=== PATIENT | female | born 1980 | race Caucasian/White ===

== ENCOUNTER 2024-07-18 08:41 | Emergency (ER) | payer MEDICARE, SELFPAY ==
[2024-07-18 09:00] VITALS: BP 143/94
--- NOTE | 2024-07-18 09:13 | ED.GENMED ---
History of Present Illness
<Jessica Cody APPLICATIONS SYSTEMS ENGINEER - Last Filed: 07/18/24 18:10>
General
Chief Complaint: Back Pain
Source: patient
Exam Limitations: none
Time Seen by Provider: 07/18/24 09:11
Nursing documentation reviewed up to this point in time: agreed with
History of Present Illness
History of Present Illness:
43 yo female w h/o Neuropathy, HTN, anemia presents for L lower back pain w radiation down L leg. Developed sudden pain in R lower back 2 days ago while taking lights off [employer]. Pain in the area has gradually worsened. She felt a 'knowt' in
the area. Has been massaging the area. States pain radiates down buttock to outer thigh, down back of calf to foot. Burning, tingling pain.
Took Naproxen 6 a.m. with no relief. Had left over Tramadol which she took with no relief.
States about a year ago she was prescribed Methylprednisolone pack and after one pill developed high blood pressure, palpitations and felt 'awful.' So hasn't taken any steroids since.
Denies saddle anesthesia, denies weakness in legs, has been ambulating well, denies loss of bowel or bladder control
Past History
<Jessica Cody, APPLICATIONS SYSTEMS ENGINEER - Last Filed: 07/18/24 18:10>
Past History
ED Past Medical History: HTN and Other (Neuropathy both lower extremities)
ED Past Surgical History: Gynecological and Other (Skin lesion excision, D&C,)
Social History
Tobacco: Smoker
Alcohol: Daily
Drug: None
Personal: Single
Living: with family
Employment: Not employed
Review of Systems
<Jessica Cody, APPLICATIONS SYSTEMS ENGINEER - Last Filed: 07/18/24 18:10>
Review of Systems
Allergies reviewed?: Yes
All Other Systems: ROS reviewed and negative except as documented in HPI and ROS
Constitutional: Denies fever or fatigue
Respiratory: Denies trouble breathing
Cardiac: Denies chest pain
ABD/GI: Denies abdominal pain
: Denies dysuria, incontinence or difficulty voiding
Musculoskeletal: Reports back pain (L lower back pain)
Neurological: Reports other (pain radiates down buttock, outer thigh, calf to foot. ); Denies weakness or numbness
Phy Exam
<Jessica Cody, APPLICATIONS SYSTEMS ENGINEER - Last Filed: 07/18/24 18:10>
Physical Exam
Physical Exam:
GENERAL: No acute distress. A&Ox3.
CONSTITUTIONAL: Afebrile.
EYES: clear, conjunctivae normal
ENMT: moist mucus membranes
RESPIRATORY: Regular respirations, nonlabored, lungs clear.
CARDIOVASCULAR: Regular rate and rhythm, no murmurs, no rubs.
GI: Soft, nontender, normal BS
MUSCULOSKELETAL: Cannot reproduce pain with deep palpation of lower back/buttock. Full Rom of spine, neg bilateral SLR. Moves with ease. Sitting, standing from stretcher with ease. Well perfused.
SKIN: Warm, dry, pink
PSYCH: Normal mood and affect. Well kept, interactive and appropriate
NEUROLOGIC: Awake, alert and oriented. No focal neurological deficits. Strength 5/5 bilateral LEs. Ambulates well with normal gait.
Course
<Jessica Cody, APPLICATIONS SYSTEMS ENGINEER - Last Filed: 07/18/24 18:10>
Orders/Labs/Results
Orders:
Orders
07/18/24 09:32
Cyclobenzaprine HCl [Flexeril] 10 mg PO NOW STA
Ketorolac [Toradol] 30 mg IM NOW STA
07/18/24 10:08
Prednisone [Deltasone] 50 mg PO NOW STA
07/18/24 10:13
Dexamethasone [Decadron] 10 mg PO NOW STA
Vital Signs
Initial and Last Documented VS:
Initial Vital Signs
Temp Pulse Resp BP Pulse Ox
98.1 F 79 20 143/94 100
07/18/24 09:00 07/18/24 09:00 07/18/24 09:00 07/18/24 09:00 07/18/24 09:00
Last Documented Vital Signs
Temp Pulse Resp BP Pulse Ox
98.3 F 72 18 153/105 98
07/18/24 10:35 07/18/24 10:35 07/18/24 10:35 07/18/24 10:35 07/18/24 10:35
<Juan Francisco Muñoz MD - Last Filed: 07/18/24 10:09>
Orders/Labs/Results
Orders:
Orders
07/18/24 09:32
Cyclobenzaprine HCl [Flexeril] 10 mg PO NOW STA
Ketorolac [Toradol] 30 mg IM NOW STA
07/18/24 10:08
Prednisone [Deltasone] 50 mg PO NOW STA
07/18/24 10:13
Dexamethasone [Decadron] 10 mg PO NOW STA
Vital Signs
Initial and Last Documented VS:
Initial Vital Signs
Temp Pulse Resp BP Pulse Ox
98.1 F 79 20 143/94 100
07/18/24 09:00 07/18/24 09:00 07/18/24 09:00 07/18/24 09:00 07/18/24 09:00
Last Documented Vital Signs
Temp Pulse Resp BP Pulse Ox
98.3 F 72 18 153/105 98
07/18/24 10:35 07/18/24 10:35 07/18/24 10:35 07/18/24 10:35 07/18/24 10:35
<Jessica Cody NP - Last Filed: 07/18/24 18:10>
MDM/Problems Addressed
Differential Diagnosis Includes:
low back strain, SI strain, sciatica, cauda equina
MDM/Problems Addressed:
43 yo female w h/o Neuropathy, HTN, anemia presents for L lower back pain w radiation down L leg. Developed sudden pain in R lower back 2 days ago while taking lights off [place] tree. Pain in the area has gradually worsened. She felt a 'knowt' in
the area. Has been massaging the area. States pain radiates down buttock to outer thigh, down back of calf to foot. Burning, tingling pain.
Took Naproxen 6 a.m. with no relief. Had left over Tramadol which she took with no relief.
States about a year ago she was prescribed Methylprednisolone pack and after one pill developed high blood pressure, palpitations and felt 'awful.' So hasn't taken any steroids since.
Denies saddle anesthesia, denies weakness in legs, has been ambulating well, denies loss of bowel or bladder control
No cauda equina, pt moving about with ease ambulating well. No direct trauma, no indication for imaging at this point
Pt willing to try one dose Decadron
Pt has appt with orthopedic Dr. Whitaker next .
Return instructions reviewed.
Rx for Flexeril sent to her pharmacy
Pt and mom at bedside comfortable with plan
<Jessica Cody NP - Last Filed: 07/18/24 18:10>
*Critical Care Note
Total Time (30-74mins, 75-104mins- exclusive of procedures): Not Applicable
ED Attending Note
<Jessica Cody NP - Last Filed: 07/18/24 18:10>
-
Portions of this chart may have been created with voice recognition software.� Occasional wrong word or��sound alike� substitutions may have occurred due to the inherent limitations of voice recognition software.
<Juan Francisco Muñoz MD - Last Filed: 07/18/24 10:09>
ED Attending Note
Patient seen and examined by attending physician: Yes
ED Attending Note:
I have seen and evaluated the patient with a [id number] encounter. I have spoken to the advance practicer provider and involved in the medical history, the physical exam, medical decision making.
Evaluation and management service: agree unless noted differently below.
Results interpretation: agree unless noted differently below.
Focused HPI: 43-year-old female with history as documented presents to the ER for evaluation of left low back pain radiating down the leg. Patient reports symptoms started 2 or 3 days ago that she says initially they started after she was taking
decorations off a [place] tree; she also reports playing twister with her daughter recently but cannot recall any specific injury. She reports initially pain started as left low back pain but yesterday pain started to radiate down the leg. Pain
is worse with movement. No relieving factors noted. She denies any associated weakness in the legs. She denies any numbness in the legs. She denies any saddle anesthesia. She denies any bowel or bladder incontinence.
Physical exam: Patient laying in bed on her side, nontoxic. She has no midline tenderness in the thoracic or lumbar spine. She does have some point tenderness left paraspinal region in the L5-S1 region. She has some tenderness into the left
buttock. She has good active range of motion of the left hip with mild pain on full flexion and abduction. She has a positive straight leg raise test on the left with bowstringing (radicular pain resolves with flexion of the knee). She has some
very slight weakness on dorsiflexion of the left first toe when compared to the right but strength and sensation otherwise intact in the lower extremities bilaterally.
Medical Decision Makin-year-old female presents with low back pain with radicular symptoms for the past few days. No direct injury or trauma. Vitals and exam as above. She has no red flag findings on history or exam to suggest spinal
emergency. Her exam is consistent with a lumbar radiculopathy/sciatica. Treat symptomatically and reassess.
Discharge Plan
Departure
Patient Disposition: Home (Routine Discharge)
Date of Disposition: 07/18/24
Time of Disposition: 10:13
Patient with high blood pressure during this ER visit?: Yes
Condition: Fair
Discharge Problem:
Acute bilateral low back pain with left-sided sciatica
Instructions: Low Back Pain (DC), Sciatica (DC), BLOOD PRESSURE
Prescriptions:
New
cyclobenzaprine 10 mg tablet
10 mg PO TID MDD low back pain PRN (Reason: low back pain) Qty: 30 0RF
No Action
gabapentin 300 MG capsule
300 mg PO BID Qty: 30 0RF
lisinopril 10 MG tablet
10 mg PO DAILY Qty: 30 0RF
Referrals:
Your, [facility] [Other] - As needed
Kiki Blanton, [Family Provider] -
Prasanth Gold MD [Active] - Keep scheduled appt
Activity Restrictions/Additional Instructions:
As we discussed, you were given Decadron, a steroid here today for inflammation. It may take 12 to 24 hours to kick in but it should last for 3 days.
I sent a prescription to your pharmacy for Flexeril muscle relaxant to take 10 mg up to 3 times a day as needed. It can make you sleepy and slow your reflexes so do not drive or operate any machinery within 8 hours of taking it.
Heating pad may help.
You may use your naproxen as prescribed
Keep your appointment with Dr. Gold
Take your blood pressure under calm circumstances 1-2 times a day, as you were directed, take one extra Labetolol as needed. Discuss your high blood pressure with your data center technician.
Interventions
Interventions:
*Risk Screen - Suicide Last Done: 07/18/24 09:00
*General Assessment Last Done: 07/18/24 09:00
*Neglect/Abuse Screening Last Done: 07/18/24 09:00
ED- Fall Risk Assessment Last Done: 07/18/24 10:35
*ED COVID-19 Vaccine History Last Done: 07/18/24 10:35
*Nursing Disposition Last Done: 07/18/24 10:35
ED-Musculoskeletal Assessment Last Done: 07/18/24 09:41
Discharge Date and Time
Discharge Date/Time: 07/18/24 10:38
Print Language: [id number]
[2024-07-18] MEDS: TORADOL 30 MG IM (09:37)
[2024-07-18] MEDS: FLEXERIL 10 MG PO (09:37)
[2024-07-18 09:40] VITALS: BMI 22.5
[2024-07-18] MEDS: DECADRON 10 MG PO (10:25)
[2024-07-18 10:35] VITALS: BP 153/105
== END 2024-07-18 10:38 | disposition home or self-care (01) ==
LOC: EMR 08:41
PROVIDERS: EMERGENCY PHYSICIAN Emergency Medicine; FAMILY PHYSICIAN Family Medicine
DX: M54.42 Lumbago with sciatica, left side (principal); I10 Essential (primary) hypertension; F17.200 Nicotine dependence, unspecified, uncomplicated
CPT/HCPCS: 96372; 99284